=== PATIENT | male | born 1940 | race Caucasian/White ===

== ENCOUNTER 2018-08-30 08:08 | Inpatient (IN) ==
--- NOTE | 2018-08-13 12:21 | PAT Medication Instructions ---
Medication Instructions Date of Service August 13, 2018 Home Medications amlodipine [Norvasc] 5 mg PO QPM aspirin [Aspir-81] 81 mg PO QPM clopidogrel [Plavix] 75 mg PO QPM hydrochlorothiazide 25 mg PO QAM metoprolol tartrate 25 mg PO BID nitroglycerin 1 tab SUBLINGUAL UD PRN pravastatin 40 mg PO QPM ASK your prescriber and surgeon clopidogrel [Plavix] 75 mg PO QPM DO NOT take the morning of surgery hydrochlorothiazide 25 mg PO QAM Take morning of surgery With a small sip of water, OTHERWISE NOTHING TO EAT OR DRINK AFTER MIDNIGHT: metoprolol tartrate 25 mg PO BID nitroglycerin 1 tab SUBLINGUAL UD PRN (if needed) Take evening before surgery amlodipine [Norvasc] 5 mg PO QPM aspirin [Aspir-81] 81 mg PO QPM metoprolol tartrate 25 mg PO BID nitroglycerin 1 tab SUBLINGUAL UD PRN (if needed) pravastatin 40 mg PO QPM Other Notes If you have any questions please call us at [phone] or [phone] or [phone] or [phone]
--- NOTE | 2018-08-13 12:34 | Anesthesiology Consultation ---
Date of Service August 13, 2018 Assessment & Plan (1) Encounter for pre-operative examination: - No previous anesthesia/intubation records available. Chart Review Chart Review: Acceptable Risk for Surgery and Patient seen in Pre Admission Testing Consults Requested medical (Dr. Jack (08/17)) Patient was seen by PCP's office on 08/20/18 for preoperative evaluation. Letter was sent, along with visit note, that states "found the patient to be medically stable for this procedure and the anesthetic agent." Teaching & Discussion Pre-Anesthesia Teaching/Discussion Notes: Instructed NPO after midnight before surgery, except medications with 15 cc of water. Medication instructions provided according to the PAT guidelines. History Surgery Operation Date: 08/31/18 07:45 Proposed Procedures p L2-S1 Decompression and Fusion, Spinal Cord Monitoring - Igor Abdi DO Height/Weight Height: 6 ft Weight: 87.9 kg Allergies Allergy/AdvReac Type Severity Reaction Status Date / Time No Known Allergies Allergy Verified 08/10/18 13:06 Medications Home Medications Medication Instructions Recorded Confirmed Last Taken amlodipine [Norvasc] 5 mg PO QPM 08/10/18 08/10/18 08/09/18 aspirin [Aspir-81] 81 mg PO QPM 08/10/18 08/10/18 08/09/18 clopidogrel [Plavix] 75 mg PO QPM 08/10/18 08/10/18 08/09/18 hydrochlorothiazide 25 mg PO QAM 08/10/18 08/10/18 08/10/18 metoprolol tartrate 25 mg PO BID 08/10/18 08/10/18 08/10/18 nitroglycerin 1 tab SUBLINGUAL UD PRN 08/10/18 08/10/18 Unknown pravastatin 40 mg PO QPM 08/10/18 08/10/18 08/09/18 Past Medical History Medical History Back problem "SLIPPED DISC" Carotid artery stenosis CURRENTLY MONITORS - PARTIAL BLOCKAGE - NO CHANGES OVER LAST 3 YRS/REASON FOR BLOOD THINNER History of heart attack 1995 - PT WAS NOT AWARE THAT HE HAD ONE UNTIL PERICARDITIS OCCURED AND TESTING DONE FOUND HX OF HEART ATTACK History of pericarditis 1 YR AFTER HEART ATTACK History of skin cancer Squamous Cell Hyperlipidemia Hypertension Exercise / Class Metabolic Activity III < 4 Walking/Shop/Light housework (Limited due back pain x 2-3 years. Is able to slowly climb stairs (due to weakness in legs). Denies CP, but some SOB on treadmill since limiting activity and having increased pain. ) Past Surgical History Surgical History H/O bilateral cataract extraction [facility] - NO STENT(S) 2000 - ? REASON WHY, STENT X1 - [facility] 2009 - ? REASON WHY, NO STENT(S) - [facility] History of colonoscopy History of skin cancer RESECTED WITH SKIN GRAFTS History of total left knee replacement History of total right knee replacement PARTIAL Past Anesthesia History No Hx of Anesthesia Complications and No Family Hx of Anesthesia Complications History of PONV No Hx of PONV and Hx of Motion Sickness (H/O Sea sickness) Social History Smoking Status: Never smoker Do You Dip or Chew Tobacco: No Hx Alcohol Use: Yes Alcohol type: beer alcohol intake frequency: other Alcohol Intake Frequency Comment: 2-3 BEER A DAY Hx Substance Use: No substance use type: does not use Review of Systems Patient denies chest pain, shortness of breath, reflux, cough, wheezing, palpitations. +Some [place] on treadmill since limiting activity and having increased pain. +Joint Pain (Back and Hands) Physical Exam Vital Signs BP: 150/78 P: 61 R: 14 T: 97.8 SPO2: 96% on RA ENMT Thyromental Distance: > or= 3.5 Finger Breadths (3.5) Mallampati Class: I Neck normal visual inspection and trachea midline; neck extension not limited Respiratory normal respiratory effort Auscultation: lungs clear to auscultation bilaterally Cardiovascular Rate/Rhythm: regular rate and regular rhythm Heart Sounds: no murmur Vessels: no carotid bruit Neurologic moves all extremities Psychiatric Orientation: alert and oriented x 3 Testing Laboratory Results 08/13/18 12:49 08/13/18 12:49 08/13/18 08/13/18 08/13/18 12:49 13:34 Unknown PT 10.5 INR 1.0 APTT 25.5 Urine Color Yellow Urine Appearance Clear Urine pH 5.0 Ur Specific [place] 1.019 Urine Protein Negative Urine Glucose (UA) Negative Urine Ketones Negative Urine Nitrite Negative Ur Leukocyte Esterase Negative Blood Type A Negative Antibody Screen NEGATIVE Electrocardiogram Date: 08/13/18 Sinus rhythm @ 62 bpm with 1st degree AV block. Left [place] deviation Septal infarct, age undetermined Inferior infarct Chest X-Ray Date: 08/13/18 Findings: + NAD FINDINGS: Punctate calcified granuloma within the right lung base and a small calcified right hilar lymph node. Otherwise, the lungs are clear. No pleural effusions. No pneumothorax. The heart is normal in size. IMPRESSION: No acute process. Stress Test Date: 02/04/18 Type: nuclear (Lexiscan) CONCLUSIONS: 1) Based upon EKG criteria, this test is negative. 2) Based upon the nuclear imaging findings there is mild inferior wall i schemia and known occluded RCA 3) Study shows stability. It is comparable to previous studies.
[2018-08-13 13:14] LABS: Basophils # (auto) 0.05 K/uL (0-0.2); Eosinophils # (auto) 0.24 K/uL (0-0.5); Eosinophils % (auto) 4.8 %; Hematocrit (blood only) 42.5 % (42-52); Hemoglobin 14.5 g/dL (14.0-18.0); Immature Granulocytes # (auto) 0.01 K/uL (0.00-0.02); Immature Granulocytes % (auto) 0.2 %; Lymphocytes # (auto) 1.22 K/uL (1.2-3.4); Lymphocytes % (auto) 24.4 %; Mean Corpuscular Hgb Conc 34.1 g/dL (32-36); Mean Corpuscular Volume 92.6 fL (80-100); Mean Platelet Volume 10.2 fL (7.4-10.4); Monocytes # (auto) 0.62 K/uL (0.11-0.59); Monocytes % (auto) 12.4 %; Neutrophils # (auto) 2.85 K/uL (1.4-6.5); Neutrophils % (auto) 57.2 %; Platelet Count 233 K/uL (130-400); RDW Standard Deviation 43.9 fL (36.4-46.3); Red Blood Count 4.59 M/uL (4.7-6.1); White Blood Count 4.99 K/uL (4.8-10.8)
--- NOTE | 2018-08-13 13:15 | XRay Report ---
XR chest Pre-admission PA/Lat HISTORY: Preop. COMPARISON: None. FINDINGS: Punctate calcified granuloma within the right lung base and a small calcified right hilar l ymph node. Otherwise, the lungs are clear. No pleural effusions. No pneumothorax. The heart is normal in size. IMPRESSION: No acute process. Electronically signed by: Jonatan Altamirano M.D. 08/13/2018 1:13 PM
[2018-08-13 13:17] LABS: Appearance Urine Clear (Clear); Bilirubin Urine Negative (Negative); Blood Urine Negative (Negative); Color Urine Yellow; Glucose Urine UA Negative (Negative); Ketones Urine Negative (Negative); Leukocyte Esterase Urine Negative (Negative); Nitrite Urine Negative (Negative); Protein Urine Negative (Negative); Specific Gravity Urine 1.019 (1.000-1.030); Urobilinogen Urine Negative (Negative)
[2018-08-13 13:25] LABS: Partial Thromboplastin Ratio 0.9; Partial Thromboplastin Time 25.5 Seconds (21.0-31.0); Prothrombin Time 10.5 Seconds (9.0-12.0)
[2018-08-13 13:29] LABS: BUN Creatinine Ratio 15.4 (10-20); Calcium 8.8 mg/dl (8.5-10.1); Est GFR (African American) 69.3; Est GFR (Non-African American) 59.8; Potassium 4.3 mmol/L (3.5-5.1)
[~2018-08-30 08:08] MED LIST: ACETAMINOPHEN 500 MG TAB PO SCH; CEFAZOLIN 3000MG 65 ML IV SCH; CeleBREX 200 MG CAP PO SCH; GABAPENTIN 300 MG PO SCH; HYDROmorphone INJ 2 MG/ML SYR/VIAL ONE; LR 15ML/HR IV SCH
[2018-08-30] MEDS ORDERED: ONDANSETRON INJ 2 MG/ML 2 ML VIAL ONE (08:34)
[2018-08-30] MEDS ORDERED: MIDAZOLAM HCL 1 MG/ML 2ML VIAL ONE (08:34)
[2018-08-30] MEDS ORDERED: LIDOCAINE HCL 2% 2 ML VIAL/AMP(20MG/ML) INFIL ONE (08:34)
[2018-08-30] MEDS ORDERED: fentaNYL citrate 100 MCG/2 ML VIAL ONE (08:34)
[2018-08-30] MEDS ORDERED: DEXAMETHASONE SOD INJ 4 MG/ML VIAL ONE (08:34)
[2018-08-30] MEDS ORDERED: GLYCOPYRROLATE 0.2 MG/ML VIAL ONE (08:34)
[2018-08-30] MEDS ORDERED: PROPOFOL IV EMULSION 10 MG/ML 20 ML VIAL IV ONE (08:34)
[2018-08-30] MEDS ORDERED: ROCURONIUM BROMIDE 10 MG/ML 5 ML VIAL ONE ×2 (08:34→11:56)
[2018-08-30] MEDS ORDERED: KETAMINE HCL INJ 50 MG/ML 10 ML VIAL ONE (08:35)
--- NOTE | 2018-08-30 09:23 | History & Physical Bridge Note ---
Date of Service August 30, 2018 History & Physical Bridge Note I have examined the patient, reviewed the History & Physical and in the interval since the performance of the History & Physical I have noted the following changes of clinical significance: no changes noted
[2018-08-30] MEDS ORDERED: MoRPHine SULFATE 10 MG/ML CARP/VIAL IV PRN (09:24)
[2018-08-30] MEDS ORDERED: ePHEDrine sulfate 50 MG/ML AMP IV PRN (09:24)
[2018-08-30] MEDS ORDERED: ATROPINE SULFATE 0.1 MG/ML 10ML SYR IV PRN (09:24)
[2018-08-30] MEDS ORDERED: ONDANSETRON INJ 2 MG/ML 2 ML VIAL IV PRN ×2 (09:24→14:40)
[2018-08-30] MEDS ORDERED: fentaNYL citrate 100 MCG/2 ML VIAL IV PRN (09:24)
--- NOTE | 2018-08-30 09:24 | History & Physical Report ---
Date of Service August 30, 2018 Assessment & Plan (1) Spinal stenosis, lumbar region with neurogenic claudication: L2-S1 decompression and fusion Present on Admission?: Yes History of Present Illness Chief Complaint: back and leg pain Primary Care Provider: Cordell Jack This is a 78-year-old male who presents with chronic persistent back and leg pain. After failing extensive course of nonoperative care is here for surgical intervention. Allergies Allergy/AdvReac Type Severity Reaction Status Date / Time No Known Allergies Allergy Verified 08/30/18 08:46 Home Medications Home Medications Medication Instructions Recorded Confirmed Type amlodipine [Norvasc] 5 mg PO QPM 08/10/18 08/10/18 History aspirin [Aspir-81] 81 mg PO QPM 08/10/18 08/10/18 History clopidogrel [Plavix] 75 mg PO QPM 08/10/18 08/10/18 History hydrochlorothiazide 25 mg PO QAM 08/10/18 08/10/18 History metoprolol tartrate 25 mg PO BID 08/10/18 08/10/18 History nitroglycerin 1 tab SUBLINGUAL UD PRN 08/10/18 08/10/18 History pravastatin 40 mg PO QPM 08/10/18 08/10/18 History Past Med/Surg History Medical History Back problem "SLIPPED DISC" Carotid artery stenosis CURRENTLY MONITORS - PARTIAL BLOCKAGE - NO CHANGES OVER LAST 3 YRS/REASON FOR BLOOD THINNER History of heart attack 1995 - PT WAS NOT AWARE THAT HE HAD ONE UNTIL PERICARDITIS OCCURED AND TESTING DONE FOUND HX OF HEART ATTACK History of pericarditis 1 YR AFTER HEART ATTACK History of skin cancer Squamous Cell Hyperlipidemia Hypertension Surgical History History of cardiac cath (X3 TOTAL) 1998 - [facility] - NO STENT(S) 2000 - ? REASON WHY, STENT X1 - [facility] 2009 - ? REASON WHY, NO STENT(S) - [facility] History of colonoscopy History of skin cancer RESECTED WITH SKIN GRAFTS History of total left knee replacement History of total right knee replacement PARTIAL H/O bilateral cataract extraction Social History Preferred Language: Occitan Communication Ability: Effective Lead Ramp Service Man Required: No Beliefs That Will Affect Care: None Current Living Situation: Spouse Other Information That Helps Us Care for You: No Feels Safe at Home: Yes Smoking Status: Never smoker Do You Dip or Chew Tobacco: No Hx Alcohol Use: Yes Alcohol type: beer Hx Substance Use: No Physical Exam Vital Signs (Past 24 Hours): Last Vital Signs Temp 36.8 C 08/30/18 08:35 Pulse 63 08/30/18 08:35 Resp 18 08/30/18 08:35 BP 146/89 H 08/30/18 08:35 Pulse Ox 98 08/30/18 08:35 Physical Exam: Patient is alert and oriented neurologically intact.
[2018-08-30] MEDS ORDERED: BUPIVACAINE/EPINEPHRINE 0.5% MPF 1:200,000 30 ML VIAL ONE (09:37)
[2018-08-30] MEDS ORDERED: BACITRACIN INJ 50,000 UNIT VIAL ONE (09:37)
[2018-08-30] MEDS ORDERED: ePHEDrine sulfate 50 MG/ML SYR ONE (12:13)
[2018-08-30] MEDS ORDERED: ALBUMIN HUMAN 5% 12.5 GM/250 ML VIAL IV ONE (12:52)
[2018-08-30] MEDS ORDERED: FLOSEAL HEMOSTATIC MATRIX 10ML TOP ONE (13:00)
--- NOTE | 2018-08-30 13:04 | Operative Report ---
Post Operative Report Pre & Post Diagnosis Operation Date: 08/30/18 10:25 Pre-Op Diagnosis: LUMBAR SPINAL STENOSIS W/NEUROGENIC CLAUDICATION Spondylolisthesis L3-4 Post-Op Diagnosis: Same Procedure Operation Date: 08/30/18 10:25 Actual Procedures #1 lumbar decompression bilateral medial facetectomies and foraminotomies L2-3 L3-4 L4-5 L5-S1. #2 posterior spinal fusion L2-3 L3-4 L4-5 L5-S1. #3 placement posterior segmental instrumentation using globus rods and screws L2-S1. #4 interbody fusion L3-4 L5-S1. #5 placement of peek cage 11 x 26 mm at L3-4 and 9 x 26 mm at L5-S1. #6 placement of local autograft in the posterior lateral gutters. #7 placement infuse collagen sponge, master graft in the posterior lateral gutters and ostial amp and interbody space. Surgeon Igor Abdi, Shipping Order Clerk Jenelle Conteh Estimated Blood Loss 950 Findings See Below Patient had severe multilevel spinal stenosis this combined with excessive blood loss in excess of 950 cc and considerable technical difficulty to the procedure and at least 40% increase in operative time. Specimens None Indications This is a 78-year-old male who presents with severe multilevel spinal stenosis. After failing extensive course of nonoperative care is here for surgical intervention. Description of Procedure Patient was met with identified and informed consent obtained. He was then taken to the operative suite underwent intubation placed in a prone position the Mikael table on top of the Jm frame. All bony prominences were well-padded eyes inspected to ensure no external pressure placed upon the peer at this point the lumbar spine was prepped and draped in a normal sterile fashion. Sharp dissection with the assistance of Bovie cautery was performed down to and exposing the lamina and transverse processes of L2 L3-L4-L5 and sacral ala bilaterally. From a caudal to cephalad fashion complete laminectomy of L5 L4 L3 and L2 was performed including bilateral medial facetectomies foraminotomies addressing severe stenosis. Pedicle screws were then placed in L2 L3-L4-L5 and S1 levels bilaterally with assistance of fluoroscopy and appropriately size brenda placed. By way of a trans-foraminal approach on the right complete discectomy of L5-S1 was performed in plate graded to subcortical bleeding bone and a 9 x 26 mm peek cage filled with osteo-amp bone graft tapped in position. Then proceeded to L3-[address] of a transforaminal approach on the right complete discectomy was performed in plate graded to subcortical bleeding bone and a 11 x 26 mm peek cage filled with ostium bone graft tapped into position. The rods were then locked in final position bilaterally. The transverse processes of L to L3-L4-L5 and sacral ala bur to subcortical bleeding bone. Infuse collagen sponge mass graft local autograft was placed in the posterior lateral gutters. 15 round ODAILS drain inserted. Incision was then closed with 1 Vicryl in the fascia 2-0 Vicryl substantially and 4 Monocryl for final skin closure. Steri-Strip sterile dressings placed. Patient will continue to PACU s table condition. Please note Jenelle Conteh present throughout the entire procedure involved in patient positioning complex portions of the surgery and final skin closure. I attest to the content of the Intraoperative Record and any orders documented therein. Any exceptions are noted below.
--- NOTE | 2018-08-30 13:23 | Fluoroscopy Report ---
FL lumbar spine 2-3V CLINICAL HISTORY: 78 years-old Male presenting with L2-S1 DECOMPRESSION AND FUSION. TECHNIQUE: 4 fluoroscopic image(s) recorded as part of an intraoperative procedure. COMPARISON: None. FINDINGS/IMPRESSION: Posterior bilateral transpedicular screw and brenda fixation from L2 to S1 with interbody spacers at L3- 4 and L5-S1. Laminectomy defects at these levels. Please see surgical report for further details. Fluoroscopy dosage (mGy): 26.98. Fluoroscopy time: 31.8 seconds. Number or time of high level fluoroscopy (HLF), digital spot, or digital subtraction images: 0. Electronically signed by: Jamari Gutiérrez M.D. 08/30/2018 1:21 PM
[2018-08-30 13:59] LABS: Hematocrit (blood only) 35.9 % (42-52); Hemoglobin 12.1 g/dL (14.0-18.0)
--- NOTE | 2018-08-30 14:17 | Anesthesiology Progress Note ---
Date of Service August 30, 2018 Anesthesia Post Procedure Vital Signs Vital Signs: Temp Pulse Pulse Resp BP Pulse Ox 08/30/18 14:15 96.8 F L 57 L 15 110/60 98 08/30/18 14:05 58 L 15 111/67 99 08/30/18 13:55 58 L 16 114/84 97 08/30/18 13:45 60 11 L 101/65 100 08/30/18 13:37 97.0 F L 72 15 129/78 100 08/30/18 08:35 98.2 F 63 18 146/89 H 98 Pain Intensity Back: Pain Intensity: 2 Transfer of Care Handoff Completed per policy Notes Mental Status: alert / awake / arousable and participated in evaluation Patient Amnestic to Procedure: Yes Nausea / Vomiting: adequately controlled Pain: adequately controlled Airway Patency, RR, SpO2: stable & adequate BP & HR: stable & adequate Hydration State: stable & adequate Anesthetic Complications: no major complications apparent and Pt Satisfied with anesthetic care
[2018-08-30] MEDS ORDERED: LORazepam 0.5 MG TAB PO PRN (14:40)
[2018-08-30] MEDS ORDERED: BISACODYL 10 MG SUPP PR PRN (14:40)
[2018-08-30] MEDS ORDERED: METOCLOPRAMIDE HCL INJ 5 MG/ML 2 ML VIAL IV PRN (14:40)
[2018-08-30] MEDS ORDERED: LORazepam 0.5 MG/1 ML VIAL IV PRN (14:40)
[2018-08-30] MEDS ORDERED: PROMETHAZINE HCL 12.5 MG in SODIUM CHLORIDE 0.9% 50 ML IV PRN (14:40)
[2018-08-30] MEDS ORDERED: HYDROmorphone INJ 0.5 MG/0.5 ML SYR IV PRN (14:40)
[2018-08-30] MEDS ORDERED: FAMOTIDINE 20 MG TAB PO PRN (14:40)
[2018-08-30] MEDS ORDERED: DO NOT ADMINISTER FLU VACCINE PRN (14:40)
[2018-08-30] MEDS ORDERED: MAGNESIUM HYDROXIDE SUSP 30 ML UDC PO PRN (14:40)
[2018-08-30] MEDS ORDERED: DO NOT ADMINISTER PNEUMOCOCCAL VACCINE PRN (14:40)
[2018-08-30] MEDS ORDERED: NITROGLYCERIN SL 0.4 MG/TAB TAB SL PRN (14:40)
[2018-08-30] MEDS ORDERED: SOD PHOSPHATE/SOD BIPHOSPHATE ENEMA 132 ML BTL PR PRN (14:40)
[2018-08-30] MEDS ORDERED: ACETAMINOPHEN 1,000 MG/100 ML VIAL IV PRN (14:40)
[2018-08-30] MEDS ORDERED: ALUMINUM/MAGNESIUM SUSP 30 ML UDC PO PRN (14:40)
[2018-08-30] MEDS: LACTATED RINGER'S 1,000 ML IV SCH ×2 (15:00→21:31)
--- NOTE | 2018-08-30 16:07 | Consultation ---
Date of Consultation August 30, 2018 Assessment & Plan (1) Status post lumbar surgery: Post op day# 0 S/P L2-S1 Lumbar decompression and fusion by Dr Abdi EBL#950ml. ODALIS drain output#275ml Hgb: 12 post op. Was 14 pre-op -pain management per ortho -wound management per ortho -PT/OT as appropriate -DVT prophylaxis per ortho -incentive spirometry -continue to monitor H&H for further acute blood loss anemia (2) Acute blood loss anemia: EBL#950ml. ODALIS drain output#275ml Hgb: 12 post op. Was 14 pre-op BP: 111/69, 98/59, 101/60. P: 60. No dizziness, SOB or CP -continue to monitor H&H -monitor vitals closely (3) Carotid artery stenosis: Current medical management. Follows with vascular in [place] -Plavix on hold since 08/26/18 (4) History of coronary artery disease: S/P stent LAD -Continue statin, aspirin, metoprolol with holding parameters (5) Hypertension: BP on low side -hold amlodipine, HCTZ and reassess tomorrow -continue metoprolol with holding parameters (6) Paroxysmal atrial fibrillation: Reported hx a-fib when had pericarditis, does not believe has had recurrent A-fib. Follows with cardiology at [facility] Current rate in 60's, regular rhythm on exam -continue metoprolol DVT Prophylaxis -SCDs per ortho Follows with Dr Cordell Jack [facility] for routine care Pt was seen with Dr Aragon. See addendum Supervising Physician Co-Signing Physician Notes HISTORY: Record reviewed. Patient interviewed and examined. Care coordinated with Brielle Cummings PA-C. Please refer to her documentation for patient's history. Briefly, 78-year-old male with history of ischemic heart disease, hypertension, and other problems. Underwent lumbar decompression/fusion today. Doing well postoperatively. No chest pain, dyspnea, nausea, vomiting, or other problems. EXAM: General- no distress Lungs- clear to auscultation; no respiratory distress Cardiovascular- RRR; no murmur; no gallop; no JVD; no pretibial edema Abdomen- + bowel sounds, soft, nontender Extremities- no cyanosis; no calf tenderness Neuro- alert, oriented Skin- warm & dry DATA: Postop hemoglobin 12.1. Other lab studies as noted. Preop chest x-ray unremarkable. EKG performed 08/13/2018 reviewed and demonstrated sinus rhythm at 62/minute, old inferior infarct, poor R wave progression, no acute changes. Tracing similar to one performed on 01/27/2017. ASSESSMENT AND PLAN: Doing well postoperatively. Patient usually takes aspirin and Plavix for ischemic heart disease and carotid artery disease. Resume antiplatelet therapy as soon as possible when okay from surgical perspective. Continue metoprolol. Hold amlodipine and hydrochlorothiazide due to perioperative blood loss, then resume as able. Please refer to ANNE MARIE Barone's documentation for discussion of other issues. Thank you for this consultation. We will follow the patient with you during their hospital stay. My cell # is [phone]. You can reach a member of the [facility] Medicine Team 20/10 via pager @ [phone]. History of Present Illness Reason for Consultation: Postop medical management Attending Physician: Igor Abdi, History of Present Illness Pt is 78 y/o M with PMH HTN, HLD, paroxysmal atrial fibrillation, CAD s/p stent to LAD, h/o pericarditis, left carotid artery stenosis treated medically, gout, h/o squamous cell carcinoma to scalp seen for postop medical management consult S/P L2-S1 decompression and fusion today by Dr. Abdi. Postop patient reports is feeling well. Denies any current pain. Denies any paresthesias to lower extremities. Denies dizziness, shortness of breath, chest pain. Has been tolerating ice chips postop. Has Briggs catheter in place. Denies fever/chills, diaphoresis, nausea, vomiting, POND, syncope, vision changes, neck pain, CP, SOB, orthopnea, palpitations, cough, sore throat, choking, otalgia, rhinorrhea, abdominal pain, extremity edema, rashes. Allergies Allergy/AdvReac Type Severity Reaction Status Date / Time No Known Allergies Allergy Verified 08/30/18 08:46 Home Medications Home Medications Medication Instructions Recorded Confirmed Type amlodipine [Norvasc] 5 mg PO QPM 08/10/18 08/10/18 History aspirin [Aspir-81] 81 mg PO QPM 08/10/18 08/10/18 History clopidogrel [Plavix] 75 mg PO QPM 08/10/18 08/10/18 History hydrochlorothiazide 25 mg PO QAM 08/10/18 08/10/18 History metoprolol tartrate 25 mg PO BID 08/10/18 08/10/18 History nitroglycerin 1 tab SUBLINGUAL UD PRN 08/10/18 08/10/18 History pravastatin 40 mg PO QPM 08/10/18 08/10/18 History Patient History Medical History Paroxysmal atrial fibrillation (Chronic) History of coronary artery disease (Chronic) Hypertension (Chronic) Hyperlipidemia (Chronic) History of heart attack (Chronic) 1995 - PT WAS NOT AWARE THAT HE HAD ONE UNTIL PERICARDITIS OCCURED AND TESTING DONE FOUND HX OF HEART ATTACK History of pericarditis (Chronic) 1 YR AFTER HEART ATTACK Back problem (Chronic) "SLIPPED DISC" History of skin cancer (Chronic) Squamous Cell Carotid artery stenosis (Chronic) CURRENTLY MONITORS - PARTIAL BLOCKAGE - NO CHANGES OVER LAST 3 YRS/REASON FOR BLOOD THINNER Surgical History History of skin cancer (Chronic) RESECTED WITH SKIN GRAFTS History of total right knee replacement (Chronic) PARTIAL History of total left knee replacement (Chronic) History of cardiac cath (Chronic) (X3 TOTAL) 1998 - [facility] - NO STENT(S) 2000 - ? REASON WHY, STENT X1 - [facility] 2010 - ? REASON WHY, NO STENT(S) - [facility] History of colonoscopy (Chronic) H/O bilateral cataract extraction (Chronic) Family History Other Congestive heart failure Stroke Social History Preferred Language: Irish Communication Ability: Effective Finance Advisor Required: No Beliefs That Will Affect Care: None Current Living Situation: Spouse Other Information That Helps Us Care for You: No Feels Safe at Home: Yes Smoking Status: Never smoker Do You Dip or Chew Tobacco: No Hx Alcohol Use: Yes Alcohol type: beer Hx Substance Use: No Review of Systems Review of Systems: All systems reviewed & are unremarkable except as noted in HPI & below Physical Exam Physical Exam: General: no distress, WDWN Head: normocephalic, atraumatic Eyes: conjunctiva non-injected, anicteric ENT: normal inspection external ears, nose, mucous membranes mildly dry Neck: supple, trachea midline Lungs: clear, no respiratory distress, no wheezing/rhonchi/rales CV: RRR, no murmur, no JVD, no pretibial edema Abd: normal BS, soft, non-tender Back: surgical dressing in place, drain in place with serosanguineous drainage Ext: no cyanosis, no calf tenderness; bilateral pedal pushes and pulls intact, distal pulses intact bilaterally, sensation to light touch intact bilaterally Neuro: A&O x 3, no focal deficits noted, normal affect Skin: warm, dry Results & Data Vital Signs (Past 12 Hours) Vital Signs Temp Pulse Pulse Resp BP Pulse Ox 08/30/18 15:38 63 15 101/60 97 08/30/18 15:07 60 16 98/59 L 97 08/30/18 14:30 36.2 C L 55 L 16 111/69 97 08/30/18 14:25 55 L 13 111/54 L 100 08/30/18 14:15 36.0 C L 57 L 15 110/60 98 08/30/18 14:05 58 L 15 111/67 99 08/30/18 13:55 58 L 16 114/84 97 08/30/18 13:45 60 11 L 101/65 100 08/30/18 13:37 36.1 C L 72 15 129/78 100 08/30/18 08:35 36.8 C 63 18 146/89 H 98 Laboratory Results Short CBC 08/30/18 Range/Units 13:52 Hgb 12.1 L (14.0-18.0) g/dL Hct 35.9 L (42-52) % Diagnostic Findings LUMBAR SPINE XRAY: FINDINGS/IMPRESSION: Posterior bilateral transpedicular screw and brenda fixation from L2 to S1 with interbody spacers at L3-4 and L5-S1. Laminectomy defects at these levels
[2018-08-30] MEDS: CEFAZOLIN 2000MG 2,000 MG/15 ML SYR IV SCH (18:40)
[2018-08-30] MEDS: METOPROLOL TARTRATE 50 MG TAB PO SCH (20:35)
[2018-08-30] MEDS: PRAVASTATIN SOD 40 MG TAB PO SCH (20:36)
[2018-08-30] MEDS: DOCUSATE SODIUM/SENNA 50/8.6MG TAB PO SCH (20:36)
[2018-08-30] MEDS: ASPIRIN 81 MG ECTAB PO SCH (20:37)
[2018-08-30] MEDS ORDERED: AMLODIPINE BESYLATE 5 MG TAB PO SCH (21:00)
[2018-08-31] MEDS: CEFAZOLIN 2000MG 2,000 MG/15 ML SYR IV SCH (02:37)
[2018-08-31] MEDS: LACTATED RINGER'S 1,000 ML IV SCH (03:31)
[2018-08-31] MEDS: POLYETHYLENE (MIRALAX) 17 GM PACK PO SCH ×4 (05:34→23:52)
[2018-08-31] MEDS ORDERED: CEFAZOLIN 3000MG 65 ML IV SCH (06:00)
[2018-08-31] MEDS ORDERED: LR 15ML/HR IV SCH (06:00)
[2018-08-31] MEDS ORDERED: CeleBREX 200 MG CAP PO SCH (06:00)
[2018-08-31] MEDS ORDERED: ACETAMINOPHEN 500 MG TAB PO SCH (06:00)
[2018-08-31] MEDS ORDERED: GABAPENTIN 300 MG PO SCH (06:00)
[2018-08-31 06:19] LABS: Eosinophils # (auto) 0.01 K/uL (0-0.5); Eosinophils % (auto) 0.1 %; Hematocrit (blood only) 28.8 % (42-52); Hemoglobin 9.7 g/dL (14.0-18.0); Immature Granulocytes # (auto) 0.05 K/uL (0.00-0.02); Immature Granulocytes % (auto) 0.4 %; Lymphocytes # (auto) 0.67 K/uL (1.2-3.4); Lymphocytes % (auto) 5.5 %; Mean Corpuscular Hgb Conc 33.7 g/dL (32-36); Mean Corpuscular Volume 92.6 fL (80-100); Mean Platelet Volume 9.4 fL (7.4-10.4); Monocytes # (auto) 0.95 K/uL (0.11-0.59); Monocytes % (auto) 7.8 %; Neutrophils # (auto) 10.43 K/uL (1.4-6.5); Neutrophils % (auto) 86.2 %; Platelet Count 200 K/uL (130-400); RDW Coefficient of Variation 13.3 % (11.5-14.5); RDW Standard Deviation 45.2 fL (36.4-46.3); Red Blood Count 3.11 M/uL (4.7-6.1); White Blood Count 12.11 K/uL (4.8-10.8)
[2018-08-31 06:54] LABS: BUN Creatinine Ratio 14.9 (10-20); Calcium 7.9 mg/dl (8.5-10.1); Creatinine Clr Calc Pharmacy 56.6 ml/min; Est GFR (African American) 67.2; Potassium 4.5 mmol/L (3.5-5.1)
--- NOTE | 2018-08-31 08:08 | Hospitalist Progress Note ---
Date of Service August 31, 2018 Assessment & Plan (1) Status post lumbar surgery: Post op day# 1 S/P L2-S1 Lumbar decompression and fusion by Dr Abdi EBL#950ml. ODALIS drain output# 680ml tolerate procedure well Hgb: 12 post op. Was 14 pre-op pain/wound management per ortho activity and therapy as directed by ortho DVT prophylaxis per ortho incentive spirometry continue to monitor H&H for further acute blood loss anemia Wean O2 (2) Acute blood loss anemia: EBL#950ml. ODALIS drain output#680ml H/H 9.7 and 28.8; Pre Op H/H 14.5/42.5 monitor H/H and vitals closely (3) Carotid artery stenosis: Current medical management. Follows with vascular in [place] Plavix on hold since 08/26/18; resume when appropriate by Dr. Abdi (4) History of coronary artery disease: S/P stent LAD Continue statin, aspirin, metoprolol with holding parameters plavix on hold (5) Hypertension: BP on low side continue to hold amlodipine, HCTZ and reassess in a.m. continue metoprolol with holding parameters (6) Elevated fasting glucose: no hx of DM Pt fasting glucose was 143 this morning; On 07/2018 was 93 likely secondary to post op state along with decadron pre op follow bmp in a.m (7) Paroxysmal atrial fibrillation: Reported hx a-fib when had pericarditis, does not believe has had recurrent A- fib. Follows with cardiology at [facility] continue metoprolol DVT Prophylaxis -SCDs per ortho Disposition: Per Attending Dr. Abdi Follow up: PCP Dr. Cordell Jack [facility] for routine care Patient was seen and examined in collaboration with Dr. Aragon, please see addendum Starting 09/01/18 patient will be under the care of Dr. Lewis Thank you for this consultation. We will follow the patient with you during their hospital stay. You can reach a member of the [facility] Hospitalist Team 20/10 via pager @ [phone]. Supervising Physician Co-Signing Physician Notes HISTORY: Patient interviewed and examined. Care coordinated with Brielle Cummings PA-C. Noted to have orthostatic hypotension this morning during therapy. Received 1 L NSS. Otherwisse, doing well postoperatively. No chest pain, dyspnea, nausea, vomiting, or other problems. EXAM: General- no distress Lungs- clear to auscultation; no respiratory distress Cardiovascular- RRR; no murmur; no gallop; no JVD; no pretibial edema Abdomen- + bowel sounds, soft, nontender Extremities- no cyanosis; no calf tenderness Neuro- alert, oriented Skin- warm & dry DATA: Hgb 9.7. ASSESSMENT AND PLAN: Doing well postoperatively. Patient usually takes aspirin and Plavix for ischemic heart disease and carotid artery disease. Resume antiplatelet therapy as soon as possible when okay from surgical perspective. Continue metoprolol. Hold amlodipine and hydrochlorothiazide due to perioperative blood loss and orthostasis, then resume as able. Please refer to ANNE MARIE Barone's documentation for discussion of other issues. Thank you for this consultation. We will follow the patient with you during their hospital stay. My cell # is [phone]. Dr. Susanna Lewis will be assuming medical management 09/01/18. You can reach a member of the [facility] Medicine Team 20/10 via pager @ [phone]. Subjective Patient was seen and examined in room 311. Follow up s/p Lumbar Decomp/Fusion L2-S1 POD #1. He is doing well. Offers no complaints. Currently denies back pain. Denies f/c/s, chest pain, sob, n/v/d, abdominal pain. Passing Flatus. Queen cath in place. Does have mild dry mouth post operatively. Review of Systems Review of Systems: As noted per HPI, 10 systems reviewed and negative unless noted above. Physical Exam Physical Exam: Gen: WD/WN, M, sitting up in bed, NAD, A&O x3 HEENT: Normocephalic, atraumatic, conjunctivae moist, sclerae anicteric, mucous membranes moist. Lung: Clear to Auscultation bilaterally, no wheezes/rales/rhonchi on 2 L O2 NC Heart: Regular rate, regular rhythm, no murmurs, rubs, or gallops Abdomen: Soft, NT, ND +BS x 4 Extremities: No edema, b/l SCDS in place Skin: Warm, no rash, negative turgor. Lumbar dressing CDI, ODALIS drain with serosanginous drainage : +queen with yellow urine Results & Data Vital Signs (Past 12 Hours) Vital Signs Temp Pulse Resp BP Pulse Ox 08/31/18 04:32 36.4 C L 74 16 108/66 98 08/30/18 23:10 36.5 C 75 16 100/61 98 Laboratory Results Short CBC 08/30/18 08/31/18 Range/Units 13:52 06:01 WBC 12.11 H (4.8-10.8) K/uL Hgb 12.1 L 9.7 L (14.0-18.0) g/dL Hct 35.9 L 28.8 L (42-52) % Plt Count 200 (130-400) K/uL BMP 08/31/18 06:01 Sodium 135 L Potassium 4.5 Chloride 102 Carbon Dioxide 28 BUN 18 Creatinine 1.20 Glucose 142 H Calcium 7.9 L Medications Administered Aspirin (Ecotrin Ectab) 81 mg PO QPM SUZIE Stop: 09/29/18 20:59 Last Admin: 08/30/18 20:37 Dose: 81 mg Documented by: [id number] Metoprolol Tartrate (Lopressor) 25 mg PO BID SUZIE Stop: 09/29/18 20:59 Last Admin: 08/30/18 20:35 Dose: 25 mg Documented by: [id number] Polyethylene Glycol (Miralax Powder Packet) 17 gm PO Q6 SUZIE Stop: 09/30/18 05:59 Last Admin: 08/31/18 05:34 Dose: 17 gm Documented by: [id number] Pravastatin Sodium (Pravachol) 40 mg PO QPM SUZIE Stop: 09/29/18 20:59 Last Admin: 08/30/18 20:36 Dose: 40 mg Documented by: [id number] Senna/Docusate Sodium (Senokot S) 2 tab PO HS SUZIE Stop: 09/29/18 20:59 Last Admin: 08/30/18 20:36 Dose: 2 tab Documented by: [id number] Discontinued Medications Acetaminophen (Tylenol) 1,000 mg PO PREOP SUZIE Stop: 08/30/18 18:00 Last Admin: 08/30/18 15:57 Dose: Not Given Documented by: [id number] Bacitracin (Bacitracin) Confirm Administered Dose 50,000 units .ROUTE .STK-MED ONE Stop: 08/30/18 09:38 Last Admin: 08/30/18 10:44 Dose: 50,000 units Documented by: [id number] Bupivacaine HCl/Epinephrine Bitart (Sensorcaine/Epinephrine 0.5% Mpf 1:200,000) Confirm Administered Dose 30 ml .ROUTE .STK-MED ONE Stop: 08/30/18 09:38 Last Admin: 08/30/18 10:44 Dose: 30 ml Documented by: [id number] Celecoxib (Celebrex) 200 mg PO PREOP SUZIE Stop: 08/30/18 18:00 Last Admin: 08/30/18 15:56 Dose: Not Given Documented by: [id number] Gabapentin (Neurontin) 300 mg PO PREOP SUZIE Stop: 08/30/18 18:00 Last Admin: 08/30/18 15:56 Dose: Not Given Documented by: [id number] Lactated Ringer's (Lr) 1,000 mls @ 15 mls/hr IV .Q24H SUZIE Stop: 08/31/18 05:59 Last Infusion: 08/30/18 08:52 Dose: 0 mls/hr Documented by: [id number] Admin: 08/30/18 08:50 Dose: 15 mls/hr Documented by: [id number] Cefazolin Sodium (Ancef 3000mg) 65 mls @ 130 mls/hr IV PREOP SUZIE; Protocol Stop: 08/30/18 18:00 Last Infusion: 08/30/18 15:57 Dose: 0 mls/hr Documented by: [id number] Admin: 08/30/18 09:52 Dose: 130 mls/hr Documented by: [id number] Lactated Ringer's (Lr) 1,000 mls @ 150 mls/hr IV .Q6H40M SUZIE Stop: 09/29/18 14:39 Last Infusion: 08/31/18 06:22 Dose: 0 mls/hr Documented by: [id number] Admin: 08/31/18 03:31 Dose: 150 mls/hr Documented by: [id number] Infusion: 08/31/18 03:31 Dose: 150 mls/hr Documented by: [id number] Admin: 08/30/18 21:31 Dose: 150 mls/hr Documented by: [id number] Infusion: 08/30/18 21:31 Dose: 150 mls/hr Documented by: [id number] Admin: 08/30/18 15:00 Dose: 150 mls/hr Documented by: [id number] Cefazolin Sodium (Ancef 2000mg) 2,000 mg in 15 mls @ 3.75 mls/min IV Q8H SUZIE; Protocol Stop: 08/31/18 02:03 Last Admin: 08/31/18 02:37 Dose: 3.75 mls/min Documented by: [id number] Admin: 08/30/18 18:40 Dose: 3.75 mls/min Documented by: [id number] Miscellaneous (Floseal Hemostatic Matrix 10ml) 30 ml TOP ONCE ONE Stop: 08/30/18 13:01 Last Admin: 08/30/18 13:01 Dose: 30 ml Documented by: [id number]
[2018-08-31] MEDS: METOPROLOL TARTRATE 50 MG TAB PO SCH ×2 (08:33→20:56)
[2018-08-31] MEDS ORDERED: hydroCHLOROthiazide 25 MG TAB PO SCH (09:00)
[2018-08-31] MEDS ORDERED: SODIUM CHLORIDE 0.9% 1000ML 1,000 ML IV SCH (09:30)
--- NOTE | 2018-08-31 09:33 | Orthopedic Progress Note ---
Date of Service August 31, 2018 Assessment & Plan (1) Spinal stenosis, lumbar region with neurogenic claudication: Patient will begin bed to chair today. He is somewhat hypotensive. We will provide a bolus of normal saline today. Present on Admission?: Yes Subjective Patient's back pain is controlled leg symptoms improved. Physical Exam Physical Exam: On exam he is comfortable neurologically intact. He is having some hypotensive episodes. Results & Data Vital Signs (Past 12 Hours) Vital Signs Temp Pulse Resp BP Pulse Ox 08/31/18 08:14 36.3 C L 67 18 128/69 97 08/31/18 04:32 36.4 C L 74 16 108/66 98 08/30/18 23:10 36.5 C 75 16 100/61 98
--- NOTE | 2018-08-31 10:12 | Anesthesiology Progress Note ---
Date of Service August 31, 2018 Anesthesia Post Procedure Vital Signs Vital Signs: Temp Pulse Pulse Resp BP Pulse Ox 08/31/18 08:14 36.3 C L 67 18 128/69 97 08/31/18 04:32 36.4 C L 74 16 108/66 98 08/30/18 23:10 36.5 C 75 16 100/61 98 08/30/18 19:03 36.5 C 72 16 102/60 95 08/30/18 18:40 77 131/73 98 08/30/18 17:38 79 16 109/64 98 08/30/18 16:29 64 16 97/52 L 98 08/30/18 15:38 63 15 101/60 97 08/30/18 15:07 60 16 98/59 L 97 08/30/18 14:30 36.2 C L 55 L 16 111/69 97 08/30/18 14:25 55 L 13 111/54 L 100 08/30/18 14:15 36.0 C L 57 L 15 110/60 98 08/30/18 14:05 58 L 15 111/67 99 08/30/18 13:55 58 L 16 114/84 97 08/30/18 13:45 60 11 L 101/65 100 08/30/18 13:37 36.1 C L 72 15 129/78 100 Notes Mental Status: alert / awake / arousable and participated in evaluation Nausea / Vomiting: adequately controlled Pain: adequately controlled Airway Patency, RR, SpO2: stable & adequate BP & HR: stable & adequate Hydration State: stable & adequate
[2018-08-31] MEDS: OXYCODONE HCL IR 5 MG TAB (IMMEDIATE RELEASE) PO PRN (16:28)
[2018-08-31] MEDS ORDERED: SODIUM CHLORIDE 0.9% 500 ML IV SCH (18:30)
[2018-08-31] MEDS: ASPIRIN 81 MG ECTAB PO SCH (20:55)
[2018-08-31] MEDS: PRAVASTATIN SOD 40 MG TAB PO SCH (20:57)
[2018-08-31] MEDS: DOCUSATE SODIUM/SENNA 50/8.6MG TAB PO SCH (20:57)
[2018-09-01] MEDS: ACETAMINOPHEN 500 MG TAB PO PRN ×2 (00:11→09:00)
[2018-09-01] MEDS: POLYETHYLENE (MIRALAX) 17 GM PACK PO SCH ×3 (05:41→17:50)
[2018-09-01 06:03] LABS: Hemoglobin 8.4 g/dL (14.0-18.0); Mean Corpuscular Hgb Conc 33.6 g/dL (32-36); Mean Corpuscular Volume 93.3 fL (80-100); Mean Platelet Volume 9.8 fL (7.4-10.4); Platelet Count 176 K/uL (130-400); RDW Coefficient of Variation 13.6 % (11.5-14.5); RDW Standard Deviation 46.6 fL (36.4-46.3); Red Blood Count 2.68 M/uL (4.7-6.1)
[2018-09-01 06:34] LABS: BUN Creatinine Ratio 13.7 (10-20); Calcium 7.7 mg/dl (8.5-10.1); Est GFR (African American) 70.7; Potassium 4.2 mmol/L (3.5-5.1)
[2018-09-01] MEDS ORDERED: SODIUM CHLORIDE 0.9% 250 ML IV PRN (07:44)
[2018-09-01] MEDS: METOPROLOL TARTRATE 50 MG TAB PO SCH ×2 (08:57→20:21)
--- NOTE | 2018-09-01 10:18 | Orthopedic Progress Note ---
Date of Service September 01, 2018 Assessment & Plan (1) Acute blood loss as cause of postoperative anemia: This time we will transfuse the patient today. His blood pressures been reliable. His drain is still significant. We will continue with therapy as tolerated. Hopefully discharge home the next day or so. Present on Admission?: Yes Subjective Patient's back pain is controlled leg symptoms improved. Physical Exam Physical Exam: On exam he appears quite comfortable. Is neurologically intact. Results & Data Vital Signs (Past 12 Hours) Vital Signs Temp Pulse Pulse Resp BP BP Pulse Ox 09/01/18 09:30 37.1 C 83 15 100/59 L 96 09/01/18 09:00 36.9 C 87 16 99/62 L 94 09/01/18 08:45 37.9 C H 83 14 113/71 95 09/01/18 08:22 37.0 C 89 18 113/67 09/01/18 07:30 103/64 09/01/18 07:26 106/69 09/01/18 07:20 37.1 C 83 12 123/72 94 09/01/18 00:00 37.1 C 81 17 122/65 95
--- NOTE | 2018-09-01 13:58 | Hospitalist Progress Note ---
Date of Service September 01, 2018 Assessment & Plan (1) Status post lumbar surgery: S/P L2-S1 Lumbar decompression and fusion by Dr Abdi # POD -2 -H & H - HB down to 8.4 and due to hypotension, transfusion blood per ortho -Monitor H & H -Wound care per primary team -Pain mx per primary team (2) Acute blood loss anemia: EBL#950ml. ODALIS drain + Pre Op H/H 14.5/42.5, now down to 8s and with BP going down, transfusion PRBC per ortho -Monitor H & H (3) Carotid artery stenosis: Current medical management. Follows with vascular in [place] -Plavix on hold since 08/26/18; resume when appropriate by Dr. Abdi (4) History of coronary artery disease: -S/P stent LAD -Continue statin, aspirin, metoprolol with holding parameters -plavix on hold (5) Hypertension: BP on low side -continue to hold amlodipine, HCTZ -continue metoprolol with holding parameters (6) Elevated fasting glucose: -no hx of DM -Pt fasting glucose was 143 this morning; On 07/2018 was 93 -likely secondary to post op state along with decadron pre op (7) Paroxysmal atrial fibrillation: Reported hx a-fib when had pericarditis, does not believe has had recurrent A- fib. Follows with cardiology at [facility] continue metoprolol DVT Prophylaxis -SCDs per ortho Disposition: Per Attending Dr. Abdi Follow up: PCP Dr. Cordell Jack [facility] for routine care You can reach a [facility] via pager @ [phone]. Disposition per primary team Subjective Patient's pain is well controlled on current regimen. Denies any fever, chest pain, shortness of breath, cough, nausea, vomiting, diarrhea. Patient denies any dizziness, lightheadedness. Receiving blood transfusion currently Physical Exam Physical Exam: GENERAL- AAOX3, No acute distress LUNGS- Air entry bilaterally equal. No rales, rhonchi, crackles, wheezes heard. HEART- Regular rate and rhythm. No murmurs ABDOMEN- Soft, non tender, non distended, Bowel sounds heard. EXTREMITIES- Good peripheral pulses, no edema BACK- S/P Lumbar decompression surgery with drain in situ Results & Data Vital Signs (Past 12 Hours) Vital Signs Temp Pulse Pulse Resp BP BP Pulse Ox 09/01/18 13:45 37.0 C 72 16 114/68 97 09/01/18 13:24 99/61 L 09/01/18 13:15 37.1 C 74 17 99/61 L 94 09/01/18 13:00 37 C 75 75 16 120/74 120/74 96 09/01/18 12:43 37.6 C H 71 16 110/66 09/01/18 11:22 36.6 C 67 13 113/69 95 09/01/18 11:00 36.7 C 66 15 122/75 95 09/01/18 10:00 36.6 C 74 74 16 119/70 119/70 96 09/01/18 09:30 37.1 C 83 15 100/59 L 96 09/01/18 09:00 36.9 C 87 16 99/62 L 94 09/01/18 08:45 37.9 C H 83 14 113/71 95 09/01/18 08:22 37.0 C 89 18 113/67 09/01/18 07:30 103/64 09/01/18 07:26 106/69 09/01/18 07:20 37.1 C 83 12 123/72 94
[2018-09-01] MEDS: ASPIRIN 81 MG ECTAB PO SCH (20:21)
[2018-09-01] MEDS: TRAMADOL HCL 50 MG TABLET PO PRN (20:22)
[2018-09-01] MEDS: PRAVASTATIN SOD 40 MG TAB PO SCH (20:22)
[2018-09-01] MEDS: DOCUSATE SODIUM/SENNA 50/8.6MG TAB PO SCH (20:22)
[2018-09-02] MEDS: POLYETHYLENE (MIRALAX) 17 GM PACK PO SCH ×4 (00:18→17:46)
[2018-09-02] MEDS: OXYCODONE HCL IR 5 MG TAB (IMMEDIATE RELEASE) PO PRN ×2 (05:55→17:45)
[2018-09-02] MEDS: ACETAMINOPHEN 500 MG TAB PO PRN ×2 (05:55→14:38)
[2018-09-02 06:41] LABS: Hematocrit (blood only) 31.1 % (42-52); Hemoglobin 10.3 g/dL (14.0-18.0); Mean Corpuscular Hgb Conc 33.1 g/dL (32-36); Mean Corpuscular Volume 90.7 fL (80-100); Platelet Count 176 K/uL (130-400); RDW Coefficient of Variation 15.9 % (11.5-14.5); RDW Standard Deviation 52.9 fL (36.4-46.3); Red Blood Count 3.43 M/uL (4.7-6.1); White Blood Count 8.55 K/uL (4.8-10.8)
[2018-09-02] MEDS: METOPROLOL TARTRATE 50 MG TAB PO SCH ×2 (08:37→21:23)
--- NOTE | 2018-09-02 09:56 | Orthopedic Progress Note ---
Date of Service September 02, 2018 Assessment & Plan (1) Status post lumbar surgery: This time we will continue physical therapy today monitor his ODALIS output anticipate discharge home tomorrow. Present on Admission?: Yes Subjective Back pain is controlled leg symptoms improved. Physical Exam Physical Exam: Patient is good strength testing appears comfortable. Results & Data Vital Signs (Past 12 Hours) Vital Signs Temp Pulse Resp BP Pulse Ox 09/02/18 07:52 37.0 C 71 15 131/66 93 09/02/18 05:43 136/77 09/02/18 05:41 132/67 09/02/18 00:02 37.6 C H 75 14 143/71 H 94
--- NOTE | 2018-09-02 16:57 | Hospitalist Progress Note ---
Date of Service September 02, 2018 Assessment & Plan (1) Status post lumbar surgery: S/P L2-S1 Lumbar decompression and fusion by Dr Abdi # POD -2 -H & H - HB down to 8.4 and due to hypotension PRBC transfusion on 09/01/18. HB up to 10s now -Monitor H & H -Wound care per primary team -Pain mx per primary team (2) Acute blood loss anemia: EBL#950ml. ODALIS drain + Pre Op H/H 14.5/42.5, now down to 8s and with BP going down, transfusion PRBC per ortho on 09/01/18, now HB up to 10s -Monitor H & H (3) Carotid artery stenosis: Current medical management. Follows with vascular in [place] -Plavix on hold since 08/26/18; resume when appropriate by Dr. Abdi (4) History of coronary artery disease: -S/P stent LAD -Continue statin, aspirin, metoprolol with holding parameters -plavix on hold (5) Hypertension: BP on low side -continue to hold amlodipine, HCTZ -continue metoprolol with holding parameters (6) Elevated fasting glucose: -no hx of DM -Pt fasting glucose was 143 this morning; On 07/2018 was 93 -likely secondary to post op state along with decadron pre op (7) Paroxysmal atrial fibrillation: Reported hx a-fib when had pericarditis, does not believe has had recurrent A- fib. Follows with cardiology at [facility] continue metoprolol DVT Prophylaxis -SCDs per ortho Disposition: Per Attending Dr. Abdi Follow up: PCP Dr. Cordell Jack [facility] for routine care You can reach a member of the [facility] Hospitalist Team 20/10 via pager @ [phone]. Disposition per primary team Subjective Patient is feeling much better today. Pain is controlled. No chest pain, shortness of breath, fever, chills Not hypoxic, saturating 97% on room Physical Exam Physical Exam: GENERAL- AAOX3, No acute distress LUNGS- Air entry bilaterally equal. No rales, rhonchi, crackles, wheezes heard. HEART- Regular rate and rhythm. No murmurs ABDOMEN- Soft, non tender, non distended, Bowel sounds heard. EXTREMITIES- Good peripheral pulses, no edema BACK- S/P Lumbar decompression surgery with drain in situ Results & Data Vital Signs (Past 12 Hours) Vital Signs Temp Pulse Resp BP Pulse Ox 09/02/18 15:42 37.4 C 65 17 137/77 97 09/02/18 07:52 37.0 C 71 15 131/66 93 09/02/18 05:43 136/77 09/02/18 05:41 132/67
[2018-09-02] MEDS ORDERED: Nursing to Pharmacy Communication ONE (18:30)
[2018-09-02] MEDS: DOCUSATE SODIUM/SENNA 50/8.6MG TAB PO SCH (21:23)
[2018-09-02] MEDS: PRAVASTATIN SOD 40 MG TAB PO SCH (21:23)
[2018-09-02] MEDS: ASPIRIN 81 MG ECTAB PO SCH (21:23)
[2018-09-03] MEDS: TRAMADOL HCL 50 MG TABLET PO PRN (05:04)
[2018-09-03] MEDS: METOPROLOL TARTRATE 50 MG TAB PO SCH (08:55)
--- NOTE | 2018-09-03 10:30 | Discharge Summary ---
Date of Service September 03, 2018 Admission HPI Per Admitting Provider This is a 78-year-old male who presents with chronic persistent back and leg pain. After failing extensive course of nonoperative care is here for surgical intervention. Principal Diagnosis Lumbar spinal stenosis with neurogenic claudication Discharge Data Allergies Allergy/AdvReac Type Severity Reaction Status Date / Time No Known Allergies Allergy Verified 08/30/18 08:46 Consultations 08/30/18 14:40 Consult Case Management - Discharge Planning Routine Consult Hospitalist Routine Procedures Performed Operation Date: 08/30/18 10:25 Actual Procedures p L2-S1 Decompression and Fusion(Not Applicable) - Igor Abdi DO Ordered Studies 08/30/18 10:25 FL fluoroscopy <1hr Routine FL lumbar spine 2-3V Routine Hospital Course (1) Status post lumbar surgery: Patient underwent lumbar decompression fusion tolerated as well as taken to orthopedic for postoperative. His leg symptoms improved. He was struggling with postop anemia secondary to acute blood loss and was transfused 2 units. He tolerated this well. He continued to progress appropriately with physical therapy and subsequently discharged home. Discharge orders and instructions from the chart for further review. Total Time Total Time Spent Total Time Spent (In Minutes): 20 minutes Discharge Plan Discharge Items Patient Disposition: Home - Self-Care Reason For Visit: LUMBAR SPINAL STENOSIS W/NEUROGENIC CLAUDICATION Discharge Diagnosis: lumbar stenosis Discharge Goals: Improve function Activity: Per 'Additional Instructions' section Non-emergency contact: Primary Care Provider Call non-emergency contact if: you have any medication questions Follow-up/Referrals: Cordell Jack [Primary Care Provider] - Diet: Regular Addtl Provider Instructions: ACTIVITY RECOMMENDATIONS: SELF CARE INSTRUCTIONS AFTER THORACIC/LUMBAR FUSIONS 1. You may walk to your tolerance. It is good exercise for your legs and back. Expect some back and intermittent leg aches and pains. 2. You may perform "counter-top" level activities (make a sandwich, kristina with a project, etc.). 3. No bending or lifting of more than 10 pounds or back twisting of any nature (roll like a log when turning in bed). 4. You may ride in a car for 20-30 minutes at a time. No driving until after your first visit with your doctor. 5. Frequent changes of position and restricting sitting to 30 minutes at a time will help limit the amount of back spasms and stiffness you may experience. 6. You may discontinue the use of ambulatory aids (cane, crutches, etc.) once your strength and confidence allow. 7. You may fusing line inspector the shower and let water strike your incision when you arrive home at least once daily. Do not take a tub bath, sit in a hot tub or go into a swimming pool until after your first recheck in the office. SPECIAL CARE INSTRUCTIONS: VERY IMPORTANT TO READ AND REVIEW A. Your surgical incision has been closed with a cosmetic suture under the skin that will dissolve in about 6 weeks. In 14 days, you can use a pair of clean scissors and cut the suture that is left outside of the skin at the ends of your incision. 1. The small skin tapes can be removed 7 days after surgery if they have not fallen off by that point. 2. You may keep the wound open to air as much as possible to promote healing after post-op day number 5 unless told otherwise by your doctor. 3. If you think the wound looks like it is becoming infected (redness or worsening drainage) and/or you are experiencing fever, chill or worsening back pain and muscle spasms, contact the office so that we may evaluate you as soon as possible. B. Complications are uncommon, but please contact us if you have any signs or symptoms of: 1. wound infection (fever higher than 102.5 degrees F, redness, separation of wound, drainage, or increasing pain from the incision) 2. blood clots in legs (pain, swelling, redness and warmth in legs) 3. urinary tract infection (fever higher than 102.5 degrees F, burning upon urination or increased frequency of urination) 4. nerve problems (inability to walk on your toes or heels, numbness, loss of bowel or bladder control) 5. any other symptoms that concern you C. Please call the office at if you have any concerns or questions about your operation or recovery. D. No smoking! Smoking drastically decreases the chance of a solid fusion. E. Do not take any anti-inflammatory medications (Indocin, Advil, Motrin, Aspirin, Naprosyn, etc.) as these may inhibit the chance of a solid fusion. Tylenol is okay to take for pain. MANAGING PAIN AFTER SPINAL SURGERY 1. Narcotic medication is intended for short-term use and will be provided for surgical pain. Surgical pain usually lasts for a period of 4-6 weeks. Narcotic medication includes Percocet, Vicodin, Darvocet, Tylenol #3 or Lortab. 2. Longer-term pain is more appropriately treated with non-narcotic medication such as Tylenol ES. 3. Muscle spasm is not appropriately treated with narcotics. Muscle relaxers such as Soma, Flexeril or Skelaxin can be used along with Tylenol ES. 4. Remember that we all live with some "aches and pains". This is not unusual or uncommon after an injury or as we get older. a. Back pain is expected and may include muscle spasms for 4 to 6 weeks after surgery. The pain should gradually improve. If the pain worsens for no apparent reason, please contact the office. b. Intermittent leg pain may also be experienced and should not be concerned about unless it worsens for no apparent reason. If so, please contact the office. 5. We will provide appropriate medication within the normal guidelines of their prescribed use. We will also be very cautious and aware of potential abuse and extended duration of patients' medication needs. a. Pain medications are for your comfort and to assist with sleep and rest so that the tissue can heal. They are not provided in order to return to normal activity and should not be used through the day. To do so or worsening pain at night can result from ongoing tissue damage and development of tolerance to the prescribed medicine. 6. Please allow 2-3 days to process refills. Prescriptions will not be mailed but must be picked up at the office. FOLLOW UP VISIT: Keep your scheduled follow-up appointment. Any questions, please call the office at . Prescriptions: New tramadol 50 mg Tablet 50 mg PO Q4H PRN (Reason: Pain, Moderate) Qty: 30 RF: 0 oxycodone 5 mg Tablet 5 mg PO Q4H PRN (Reason: Pain, Severe) Qty: 30 RF: 0 Continued pravastatin 40 mg Tablet 40 mg PO QPM RF: 0 clopidogrel [Plavix] 75 mg Tablet 75 mg PO QPM RF: 0 amlodipine [Norvasc] 5 mg Tablet 5 mg PO QPM RF: 0 aspirin [Aspir-81] 81 mg Tablet,Delayed Release (Dr/Ec) 81 mg PO QPM RF: 0 metoprolol tartrate 50 mg Tablet 25 mg PO BID RF: 0 hydrochlorothiazide 25 mg Tablet 25 mg PO QAM RF: 0 nitroglycerin 0.4 mg Tablet, Sublingual 1 tab sublingual UD PRN (Reason: DIRECTED) RF: 0 Stand-Alone Forms: [facility] Discharge Orders: Discharge Order (Routine); Ordered 09/03/18 Ordered By: Igor Abdi Admission Data Admit Date/Time: 08/30/18 13:09 Attending Provider: Igor Abid Admit Provider: Igor Abdi Primary Care Provider: Cordell Jack Other Providers: Susanna Lewis Service: Surgical Services
== END 2018-09-03 12:12 | disposition home or self-care (01) | DRG 454 ==
LOC: ASU 08:08 → 3E 13:09